=== PATIENT | female | born 1945 | race Caucasian/White ===

== ENCOUNTER → 2017-12-01 | Outpatient (CLI) | payer OTHER, BC | LOC: FIMAGING 09:09 | PROVIDERS: ATTEND Family Medicine | DX: Z12.31 Encounter for screening mammogram for malignant neoplasm of breast (principal) ==

== ENCOUNTER → 2018-03-23 | Outpatient (CLI) | payer OTHER, BC | LOC: GIMAGING 12:22 | PROVIDERS: ATTEND Registered Nurse | DX: M25.851 Other specified joint disorders, right hip (principal); M25.852 Other specified joint disorders, left hip; M53.3 Sacrococcygeal disorders, not elsewhere classified | CPT/HCPCS: 72170-PO; 72220-PO ==

== ENCOUNTER 2018-03-26 09:47 | Emergency (ER) | payer OTHER, BC ==
--- NOTE | 2018-03-26 10:11 | EDPHY ---
H & P Stated Complaint: lower back pain after slip and fall 6 days ago Time Seen by Provider: 03/26/18 09:55 HPI/ROS: CHIEF COMPLAINT: Low back pain HISTORY OF PRESENT ILLNESS: 72-year-old female presents after a fall with low back pain. 6 days ago she slipped and fell backwards, landing on her buttocks. Since then she has had moderate to severe low back pain and difficulty ambulating at times. The pain varies in location (sometimes rt sided, other times left sided) and in intensity. X-rays of the pelvis and sacrum 2 days ago were unremarkable. She is taking ibuprofen and Tylenol with some relief. Acupuncture 3 days ago with transient relief. Yesterday she had Rolfing and felt much better afterward. However, this morning she awoke with increased pain. Had trouble walking this morning because of pain. REVIEW OF SYSTEMS: complete 10 point ROS negative except at noted in the HPI - Medical/Surgical History Hx Asthma: No Hx Chronic Respiratory Disease: No Hx Diabetes: No Hx Cardiac Disease: No Hx Renal Disease: No Hx Cirrhosis: No Hx Alcoholism: No Hx HIV/AIDS: No Hx Splenectomy or Spleen Trauma: No Other PMH: denies - Social History Smoking Status: Never smoked - Physical Exam Exam: General Appearance: Alert, pleasant Eyes: Pupils equal and round, no conjunctival pallor ENT, Mouth: Mucous membranes moist Neck: Normal inspection Respiratory: Lungs are clear to auscultation Cardiovascular: Regular rate and rhythm Gastrointestinal: Abdomen is soft and nontender Back: Normal inspection, mild tenderness over the mid lumbar spine, no tenderness over the sacrum or coccyx, no compression tenderness of the pelvis Neurological: Alert, motor 5/5, sensory intact to light touch, steady gait Skin: Warm and dry Extremities: Normal inspection Psychiatric: Mood and affect normal Constitutional: Initial Vital Signs Temperature (C) 37.0 C 03/26/18 09:50 Heart Rate 75 03/26/18 09:50 Respiratory Rate 16 03/26/18 09:50 Blood Pressure 109/64 03/26/18 09:50 O2 Sat (%) 96 03/26/18 09:50 O2 Delivery Mode Room Air Allergies/Adverse Reactions: No Known Allergies Allergy (Unverified 03/26/18 09:49) Home Medications: Medication Instructions Recorded Hydrocodone/APAP 5/325 [Brownell 1 - 2 tab PO Q4H PRN #10 tab 03/26/18 5/325] Ondansetron Odt [Zofran Odt 4 mg 4 mg PO Q4 PRN #6 tab 03/26/18 (*)] Medical Decision Making - Diagnostics Imaging Results: Lumbar Spine X-Ray 03/26/18 10:09 Impression: 1. No acute compression fracture. 2. Moderate multilevel degenerative disk disease. Imaging: I viewed and interpreted images myself ED Course/Re-evaluation: This pt presents with LBP after a fall. No evidence of fx on prior Xrays ( reviewed by me) or on LS spine Xrays today. I suspect that the Rolfing caused a flare of pain today. d/w pt and at length, will treat symptomatically. Will fu with PCP in 3-4 days. Differential Diagnosis: includes though not limited to spinal fracture, pelvic fracture, sciatica, neurovasc compromise Departure - Departure Disposition: Home, Routine, Self-Care Clinical Impression: Low back strain Qualifiers: Encounter type: initial encounter Qualified Code(s): S39.012A - Strain of muscle, fascia and tendon of lower back, initial encounter Condition: Good Instructions: Low Back Strain (ED) Additional Instructions: Use a lidocaine patch as directed. Referrals: Izabela Corona MD [Primary Care Provider] - As per Instructions Prescriptions: Hydrocodone/APAP 5/325 [Brownell 5/325] 1 - 2 tab PO Q4H PRN #10 tab PRN Reason: Pain, Moderate Ondansetron Odt [Zofran Odt 4 mg (*)] 4 mg PO Q4 PRN #6 tab PRN Reason: Nausea
[2018-03-26 11:09] VITALS: BP 112/74
== END 2018-03-26 11:09 | disposition home or self-care (01) ==
DX: S39.012A Strain of muscle, fascia and tendon of lower back, initial encounter (principal); W01.0XXA Fall on same level from slipping, tripping and stumbling without subsequent striking against object, initial encounter; Y99.8 Other external cause status

== ENCOUNTER → 2019-04-20 | Outpatient (CLI) | payer OTHER, BC | LOC: FIMAGING 11:36 ==